=== PATIENT | female | born 1960 | race African-American/Black ===

== ENCOUNTER 2016-11-08 14:37 | Inpatient (IN) | payer MEDICAID ==
[~2016-11-08] VITALS: Ht 170.2 cm; Wt 61.7 kg
[2016-11-08] MEDS ORDERED: BENA20TA3 PO (15:01)
[2016-11-08] MEDS ORDERED: METF500T4 PO (15:01)
[2016-11-08 15:37] LABS: BASOPHILS % 1.1 % (0.0-2.0); EOSINOPHILS % 0.6 % (0.0-5.0); HEMATOCRIT. 34.1 % (36.0-48.0); HEMOGLOBIN. 11.1 g/dL (12.0-16.0); LYMPHOCYTES % 36.9 % (20.0-50.0); MEAN CORPUSCULAR HEMOGLOBIN 23.9 pg (28.0-32.0); MEAN CORPUSCULAR VOLUME 73.1 fL (81.0-99.0); MEAN PLATELET VOLUME 9.3 fl (7.4-10.4); MONOCYTES % 8.1 % (2.0-8.0); NEUTROPHILS % 53.3 % (40.0-76.0); PLATELET 184 x1000/uL (130-400); RED BLOOD CELL COUNT 4.66 mill/uL (4.2-5.4); RED CELL DISTRIBUTION WIDTH 16.5 % (11.6-14.6)
[2016-11-08 15:45] LABS: PARTIAL THROMBOPLASTIN TIME 26.1 sec (23.4-31.0); PROTHROMBIN TIME 10.6 sec (9.4-11.6)
[2016-11-08 15:50] LABS: CARBON DIOXIDE 29 mEq/L (21-32); CHLORIDE 102 mEq/L (98-107)
[2016-11-08 15:53] LABS: TROPONIN I < 0.02 ng/mL (0.00-0.04)
[2016-11-08] MEDS ORDERED: LABETALOL HCL 20MG/4ML CARPUJECT IV ONE (21:45)
[2016-11-09] VITALS (9 sets, daily range): BP systolic 98–167; BP diastolic 67–104
[2016-11-09] MEDS ORDERED: QUET400T PO (01:55)
[2016-11-09] MEDS ORDERED: DEXTROSE 50% WATER 50ML SYRINGE IV PRN (02:15)
[2016-11-09] MEDS ORDERED: CLONIDINE 0.1MG TABLET PO PRN ×2 (02:15→02:45)
[2016-11-09] MEDS: QUETIAPINE FUMARATE 100MG TABLET PO SCH ×2 (03:04→20:58)
[2016-11-09 06:27] LABS: BASOPHILS % 0.4 % (0.0-2.0); EOSINOPHILS % 0.8 % (0.0-5.0); HEMATOCRIT. 34.4 % (36.0-48.0); MEAN CORPUSCULAR HEMOGLOBIN 23.8 pg (28.0-32.0); MEAN CORPUSCULAR VOLUME 74.5 fL (81.0-99.0); MEAN PLATELET VOLUME 10.1 fl (7.4-10.4); MONOCYTES % 7.6 % (2.0-8.0); NEUTROPHILS % 54.2 % (40.0-76.0); PLATELET 182 x1000/uL (130-400); RED BLOOD CELL COUNT 4.62 mill/uL (4.2-5.4); RED CELL DISTRIBUTION WIDTH 16.3 % (11.6-14.6)
[2016-11-09] MEDS: INSULIN LISPRO 100 UNITS/ML SUBCUT SCH ×4 (06:38→20:53)
[2016-11-09] MEDS: BLOOD SUGAR DIAGNOSTIC STRIP TEST SCH ×4 (06:38→20:53)
[2016-11-09 06:50] LABS: CARBON DIOXIDE 28 mEq/L (21-32); CHLORIDE 100 mEq/L (98-107); TROPONIN I < 0.02 ng/mL (0.00-0.04)
[2016-11-09 06:52] LABS: CREATINE KINASE MB FRACTION < 0.5 ng/mL (0.5-3.6)
[2016-11-09 06:59] LABS: CREATINE KINASE 26 IU/L (26-192)
[2016-11-09] MEDS ORDERED: METFORMIN HCL 500MG TABLET PO SCH (07:15)
[2016-11-09 08:36] LABS: *AMPHETAMINES SCREEN URINE NEGATIVE (NEGATIVE); *BARBITURATES SCREEN URINE NEGATIVE (NEGATIVE); *BENZODIAZEPINES SCREEN URINE NEGATIVE (NEGATIVE); *COCAINE SCREEN URINE PRESUMTIVE POSITIVE (NEGATIVE); CANNABINOID URINE SCREEN NEGATIVE (NEGATIVE); METHADONE URINE SCREEN NEGATIVE (NEGATIVE); OPIATES URINE SCREEN NEGATIVE (NEGATIVE); PHENCYCLIDINE URINE SCREEN NEGATIVE (NEGATIVE)
[2016-11-09] MEDS: ENOXAPARIN 40MG/0.4ML SYR SUBCUT SCH (09:00)
[2016-11-09] MEDS ORDERED: POTASSIUM CHLORIDE 20MEQ TABLET SR PO SCH (09:15)
[2016-11-09] MEDS: BENAZEPRIL 20MG TABLET PO SCH (09:16)
[2016-11-09] MEDS: AMLODIPINE 10MG TABLET PO SCH (11:30)
[2016-11-09 16:24] LABS: CREATINE KINASE 25 IU/L (26-192); CREATINE KINASE MB FRACTION < 0.5 ng/mL (0.5-3.6); TROPONIN I < 0.02 ng/mL (0.00-0.04)
[2016-11-09] MEDS ORDERED: MEDICATION NOT ON FORMULARY EA (Quetiapine Fumarate (Seroquel) 400 MG) PO SCH (21:00)
[2016-11-10] VITALS: BP 145/80
[2016-11-10 04:00] VITALS: BP 138/89
[2016-11-10] MEDS: BLOOD SUGAR DIAGNOSTIC STRIP TEST SCH ×3 (06:02→16:53)
[2016-11-10] MEDS: INSULIN LISPRO 100 UNITS/ML SUBCUT SCH ×3 (06:22→16:53)
[2016-11-10 08:00] VITALS: BP 118/74
[2016-11-10] MEDS: BENAZEPRIL 20MG TABLET PO SCH (08:47)
[2016-11-10] MEDS: AMLODIPINE 10MG TABLET PO SCH (08:47)
[2016-11-10] MEDS: ENOXAPARIN 40MG/0.4ML SYR SUBCUT SCH (08:48)
[2016-11-10 12:00] VITALS: BP 122/78
[2016-11-10] MEDS ORDERED: AMLO10TA80 PO (12:48)
[2016-11-10] MEDS ORDERED: ASPI-867 PO (12:48)
[2016-11-10] MEDS ORDERED: LIP40 PO (12:50)
[2016-11-10 16:00] VITALS: BP 164/93
[2016-11-10 18:07] VITALS: BP 122/78
== END 2016-11-10 17:00 | disposition home or self-care (01) | DRG 52 ==
LOC: ER 14:47 → 5WST 20:28
PROVIDERS: ADMIT Internal Medicine; ATTEND Internal Medicine
DX: G92 Toxic encephalopathy (principal); I67.82 Cerebral ischemia; R55 Syncope and collapse; E44.1 Mild protein-calorie malnutrition; I10 Essential (primary) hypertension; F14.10 Cocaine abuse, uncomplicated; E11.9 Type 2 diabetes mellitus without complications; F10.10 Alcohol abuse, uncomplicated; E87.6 Hypokalemia; E78.5 Hyperlipidemia, unspecified; F17.210 Nicotine dependence, cigarettes, uncomplicated; J44.9 Chronic obstructive pulmonary disease, unspecified; E78.00 Pure hypercholesterolemia, unspecified; Z82.49 Family history of ischemic heart disease and other diseases of the circulatory system; Z68.21 Body mass index [BMI] 21.0-21.9, adult; Z86.73 Personal history of transient ischemic attack (TIA), and cerebral infarction without residual deficits
CPT/HCPCS: 36415; 70450; 70551; 71010; 80053; 80305; 82550; 82553; 82962; 83690; 83735; 84484; 85025; 85610; 85730; 93005; 93306; 93880; 93970; 96374; 97116; 97162; 97165; 99285; J1650; J1815; J3490

== ENCOUNTER 2017-12-11 15:51 | Emergency (ER) | payer MEDICAID ==
[~2017-12-11] VITALS: Ht 175.3 cm; Wt 72.0 kg
[~2017-12-11 15:51] MED LIST: AMLO10TA80 PO; ASPI-867 PO; BENA20TA10 PO; LIP40 PO; METF500T6 PO; QUET400T PO
[2017-12-11] MEDS ORDERED: HYDROCODONE/ACETAMINOPHEN 5/325MG TABLET PO ONE (17:45)
[2017-12-11] MEDS ORDERED: AMLODIPINE 10MG TABLET PO ONE (22:15)
[2017-12-11 23:27] LABS: CLARITY URINE CLEAR (CLEAR); COLOR URINE YELLOW (YELLOW); KETONES URINE TRACE (NEGATIVE); LEUKOCYTE ESTERASE URINE 2+ (NEGATIVE); NITRITE URINE NEGATIVE (NEGATIVE); OCCULT BLOOD URINE NEGATIVE (NEGATIVE); PROTEIN URINE 1+ (NEGATIVE); SPECIFIC GRAVITY URINE 1.011 (1.005-1.030); UROBILINOGEN URINE 0.2 E.U./dL (0.2-1.0)
[2017-12-12 03:16] VITALS: BP 169/98
== END 2017-12-12 03:19 | disposition home or self-care (01) ==
LOC: ER 19:29
DX: G89.29 Other chronic pain (principal); M54.5 Low back pain; B37.2 Candidiasis of skin and nail; E11.65 Type 2 diabetes mellitus with hyperglycemia; E78.00 Pure hypercholesterolemia, unspecified; I10 Essential (primary) hypertension; Z86.73 Personal history of transient ischemic attack (TIA), and cerebral infarction without residual deficits; Z79.899 Other long term (current) drug therapy
CPT/HCPCS: 81003; 82962; 99284

== ENCOUNTER 2020-02-14 13:06 | Emergency (ER) | payer MEDICAID ==
[~2020-02-14] VITALS: Ht 175.3 cm; Wt 64.0 kg
[~2020-02-14 13:06] MED LIST changes: +ASPI-1158 PO; -ASPI-867 PO; +ASPI325T85 PO; +BENA40TA9 PO; +DILT180C66 PO; +METF-414 PO; -METF500T6 PO; +SIMV-46 PO; +SITA100T11 PO
[2020-02-14 13:12] VITALS: BP 172/108
[2020-02-14] MEDS ORDERED: HYDROCODONE/ACETAMINOPHEN 5/325MG TABLET PO ONE (16:15)
[2020-02-14 17:01] LABS: EOSINOPHILS % 2.2 % (0.0-5.0); HEMATOCRIT. 36.8 % (36.0-48.0); HEMOGLOBIN. 11.8 g/dL (12.0-16.0); LYMPHOCYTES % 33.5 % (20.0-50.0); MEAN CORPUSCULAR HEMOGLOBIN 24.2 pg (28.0-32.0); MEAN CORPUSCULAR VOLUME 75.1 fL (81.0-99.0); MEAN PLATELET VOLUME 8.3 fl (7.4-10.4); MONOCYTES % 6.8 % (2.0-8.0); NEUTROPHILS % 56.5 % (40.0-76.0); PLATELET 237 x1000/uL (130-400); RED BLOOD CELL COUNT 4.89 mill/uL (4.2-5.4); RED CELL DISTRIBUTION WIDTH 17.4 % (11.6-14.6)
[2020-02-14 17:04] LABS: CHLORIDE 104 mEq/L (98-107)
[2020-02-14 20:06] LABS: CLARITY URINE CLEAR (CLEAR); COLOR URINE YELLOW (YELLOW); KETONES URINE NEGATIVE (NEGATIVE); LEUKOCYTE ESTERASE URINE 2+ (NEGATIVE); NITRITE URINE NEGATIVE (NEGATIVE); OCCULT BLOOD URINE NEGATIVE (NEGATIVE); PROTEIN URINE NEGATIVE (NEGATIVE); SPECIFIC GRAVITY URINE 1.012 (1.005-1.030); UROBILINOGEN URINE 0.2 E.U./dL (0.2-1.0)
== END 2020-02-14 20:07 | disposition home or self-care (01) ==
LOC: ER 13:06
DX: S52.692A Other fracture of lower end of left ulna, initial encounter for closed fracture (principal); W01.0XXA Fall on same level from slipping, tripping and stumbling without subsequent striking against object, initial encounter; Y93.89 Activity, other specified; Y92.89 Other specified places as the place of occurrence of the external cause; Y99.8 Other external cause status; E11.9 Type 2 diabetes mellitus without complications; E78.00 Pure hypercholesterolemia, unspecified; I10 Essential (primary) hypertension; Z79.899 Other long term (current) drug therapy
CPT/HCPCS: 29125; 36415; 73090; 73110; 80053; 81003; 85025; 93005; 99285

== ENCOUNTER 2020-07-30 14:48 | Emergency (ER) | payer MEDICAID ==
[~2020-07-30] VITALS: Ht 175.3 cm; Wt 63.0 kg
[~2020-07-30 14:48] MED LIST changes: -ASPI-1158 PO; +ASPI-1406 PO; +ASPI-867 PO; -ASPI325T85 PO
[2020-07-30] MEDS ORDERED: ACETAMINOPHEN 325MG TABLET PO ONE (19:00)
[2020-07-30 20:44] LABS: BASOPHILS % 0.7 % (0.0-2.0); EOSINOPHILS % 1.1 % (0.0-5.0); HEMOGLOBIN. 9.8 g/dL (12.0-16.0); LYMPHOCYTES % 38.9 % (20.0-50.0); MEAN CORPUSCULAR HEMOGLOBIN 24.5 pg (28.0-32.0); MEAN CORPUSCULAR VOLUME 75.5 fL (81.0-99.0); MEAN PLATELET VOLUME 8.2 fl (7.4-10.4); MONOCYTES % 6.6 % (2.0-8.0); NEUTROPHILS % 52.7 % (40.0-76.0); PLATELET 361 x1000/uL (130-400); RED BLOOD CELL COUNT 3.98 mill/uL (4.2-5.4); RED CELL DISTRIBUTION WIDTH 17.1 % (11.6-14.6)
[2020-07-30 20:47] LABS: CHLORIDE 106 mEq/L (98-107)
[2020-07-30 22:03] VITALS: BP 166/105
[2020-07-30] MEDS ORDERED: CEPH500C2 MT (22:09)
[2020-07-30] MEDS ORDERED: T3 PO (22:09)
[2020-07-30] MEDS ORDERED: CEPHALEXIN 250MG CAPSULE PO ONE (22:15)
== END 2020-07-30 22:30 | disposition home or self-care (01) ==
LOC: ER 14:48
DX: L03.116 Cellulitis of left lower limb (principal); F17.200 Nicotine dependence, unspecified, uncomplicated; I10 Essential (primary) hypertension; E11.9 Type 2 diabetes mellitus without complications; I49.9 Cardiac arrhythmia, unspecified; Z79.899 Other long term (current) drug therapy
CPT/HCPCS: 36415; 71045; 73630; 80053; 83880; 84484; 85025; 93005; 93970; 99285; 99406

== ENCOUNTER 2020-10-07 17:12 | Inpatient (IN) | payer OTHER ==
[~2020-10-07] VITALS: Ht 175.3 cm; Wt 67.6 kg
[~2020-10-07 17:12] MED LIST changes: -ASPI-867 PO; -BENA40TA9 PO; +T3 PO
[2020-10-07] MEDS ORDERED: VANCOMYCIN 1 G PREMIX 200 ML IV ONE (18:00)
[2020-10-07] MEDS ORDERED: PIPERACILLIN/TAZ 3.375G PREMIX 50 ML IV ONE (18:00)
[2020-10-07] MEDS ORDERED: SODIUM CHLORIDE 0.9% 1,000 ML IV ONE (18:00)
[2020-10-07 19:17] LABS: BASOPHILS % 1.1 % (0.0-2.0); EOSINOPHILS % 1.3 % (0.0-5.0); HEMATOCRIT. 31.4 % (36.0-48.0); HEMOGLOBIN. 10.2 g/dL (12.0-16.0); LYMPHOCYTES % 27.7 % (20.0-50.0); MEAN CORPUSCULAR HEMOGLOBIN 24.5 pg (28.0-32.0); MEAN CORPUSCULAR VOLUME 75.5 fL (81.0-99.0); MEAN PLATELET VOLUME 8.9 fl (7.4-10.4); MONOCYTES % 5.6 % (2.0-8.0); NEUTROPHILS % 64.3 % (40.0-76.0); PLATELET 256 x1000/uL (130-400); RED BLOOD CELL COUNT 4.16 mill/uL (4.2-5.4); RED CELL DISTRIBUTION WIDTH 16.2 % (11.6-14.6)
[2020-10-07 19:27] LABS: PROTHROMBIN TIME 10.8 sec (9.6-11.0)
[2020-10-07] MEDS ORDERED: HYDROCODONE/ACETAMINOPHEN 5/325MG TABLET PO ONE (20:00)
[2020-10-07] MEDS ORDERED: ENOXAPARIN 40MG/0.4ML SYR SUBCUT SCH (20:30)
[2020-10-07] MEDS ORDERED: ACETAMINOPHEN 325MG TABLET PO PRN (20:30)
[2020-10-07] MEDS ORDERED: MAGNESIUM/ALUMINUM HYDROXIDE/SIMETHICONE 30ML UDC PO PRN (20:30)
[2020-10-07] MEDS ORDERED: IPRATROPIUM/ALBUTEROL 0.5-3(2.5)MG/3ML NEB NEB PRN (20:30)
[2020-10-07] MEDS ORDERED: DOCUSATE SODIUM 100MG CAPSULE PO PRN (20:30)
[2020-10-07] MEDS ORDERED: ONDANSETRON HCL 4MG/2ML INJ IV PRN (20:30)
[2020-10-07 20:44] LABS: CHLORIDE 110 mEq/L (98-107)
[2020-10-07 21:56] LABS: CLARITY URINE CLEAR (CLEAR); COLOR URINE YELLOW (YELLOW); KETONES URINE NEGATIVE (NEGATIVE); LEUKOCYTE ESTERASE URINE TRACE (NEGATIVE); NITRITE URINE NEGATIVE (NEGATIVE); OCCULT BLOOD URINE NEGATIVE (NEGATIVE); PH URINE 5.5 (4.5-8.0); PROTEIN URINE NEGATIVE (NEGATIVE); SPECIFIC GRAVITY URINE 1.011 (1.005-1.030); UROBILINOGEN URINE 0.2 E.U./dL (0.2-1.0)
[2020-10-07 22:29] LABS: *COCAINE SCREEN URINE NEGATIVE (NEGATIVE); METHADONE URINE SCREEN NEGATIVE (NEGATIVE)
[2020-10-07 22:30] LABS: *AMPHETAMINES SCREEN URINE NEGATIVE (NEGATIVE); *BARBITURATES SCREEN URINE NEGATIVE (NEGATIVE); CANNABINOID URINE SCREEN NEGATIVE (NEGATIVE); OPIATES URINE SCREEN NEGATIVE (NEGATIVE); PHENCYCLIDINE URINE SCREEN NEGATIVE (NEGATIVE)
[2020-10-07 22:31] LABS: *BENZODIAZEPINES SCREEN URINE NEGATIVE (NEGATIVE)
[2020-10-08] VITALS (7 sets, daily range): BP systolic 124–203; BP diastolic 78–116
[2020-10-08] MEDS ORDERED: DEXTROSE 50% WATER 50ML SYRINGE IV PRN
[2020-10-08] MEDS: CLONIDINE 0.1MG TABLET PO PRN (01:14)
[2020-10-08] MEDS ORDERED: PIPERACILLIN/TAZOBACTAM 3.375 G in DEXTROSE 5% WATER 50 ML IV SCH (02:00)
[2020-10-08] MEDS: PIPERACILLIN/TAZOBACTAM 3.375 G in DEXTROSE 5% WATER 50 ML IV SCH ×3 (04:40→17:41)
[2020-10-08] MEDS: BLOOD SUGAR DIAGNOSTIC STRIP TEST SCH ×4 (06:34→21:04)
[2020-10-08 06:51] LABS: BASOPHILS % 0.7 % (0.0-2.0); EOSINOPHILS % 2.3 % (0.0-5.0); HEMATOCRIT. 26.5 % (36.0-48.0); HEMOGLOBIN. 8.5 g/dL (12.0-16.0); LYMPHOCYTES % 36.6 % (20.0-50.0); MEAN CORPUSCULAR VOLUME 74.9 fL (81.0-99.0); MEAN PLATELET VOLUME 9.1 fl (7.4-10.4); MONOCYTES % 10.7 % (2.0-8.0); NEUTROPHILS % 49.7 % (40.0-76.0); PLATELET 221 x1000/uL (130-400); RED BLOOD CELL COUNT 3.54 mill/uL (4.2-5.4); RED CELL DISTRIBUTION WIDTH 16.2 % (11.6-14.6)
[2020-10-08] MEDS ORDERED: VANCOMYCIN 750 MG PREMIX 150 ML IV SCH (07:00)
[2020-10-08] MEDS: INSULIN LISPRO 100 UNITS/ML SUBCUT SCH ×4 (07:50→21:07)
[2020-10-08] MEDS ORDERED: BUPIVACAINE HCL/PF 0.5% (5MG/ML) 10ML ONE ×2 (16:45→18:19)
[2020-10-08] MEDS ORDERED: LIDOCAINE HCL 1% 20ML VIAL (Pyxis) INJ ONE ×2 (16:45→18:19)
[2020-10-08] MEDS ORDERED: TRIAMCINOLONE ACETONIDE 40MG/ML 1ML VIAL ONE ×2 (16:46→18:19)
[2020-10-08] MEDS ORDERED: DEXAMETHASONE 4MG/ML 1ML VIAL ONE ×2 (16:46→18:19)
[2020-10-08] MEDS ORDERED: SODIUM CHLORIDE 0.9% INJ 10ML FLUSH IVF ONE ×2 (16:47→18:19)
[2020-10-08] MEDS ORDERED: BACITRACIN 50,000 UNITS/VIAL ONE ×2 (16:47→18:20)
[2020-10-08] MEDS ORDERED: GENTAMICIN SULF 40MG/ML 2ML VIAL ONE ×2 (16:47→18:32)
[2020-10-08] MEDS: HYDROCODONE/ACETAMINOPHEN 5/325MG TABLET PO PRN ×2 (17:03→22:04)
[2020-10-08] MEDS: VANCOMYCIN 1 G PREMIX 200 ML IV SCH (21:05)
[2020-10-09] VITALS: BP 134/77
[2020-10-09] MEDS: PIPERACILLIN/TAZOBACTAM 3.375 G in DEXTROSE 5% WATER 50 ML IV SCH ×4 (00:23→18:00)
[2020-10-09 04:39] VITALS: BP 152/86
[2020-10-09] MEDS: BLOOD SUGAR DIAGNOSTIC STRIP TEST SCH ×4 (06:43→20:51)
[2020-10-09] MEDS ORDERED: LIDOCAINE HCL 1% 20ML VIAL (Pyxis) INJ ONE (07:31)
[2020-10-09] MEDS ORDERED: BACITRACIN 15GM TUBE TOP ONE (07:32)
[2020-10-09] MEDS ORDERED: BUPIVACAINE HCL/PF 0.5% (5MG/ML) 10ML ONE (07:32)
[2020-10-09] MEDS ORDERED: BACITRACIN 50,000 UNITS/VIAL ONE ×2 (07:32→07:33)
[2020-10-09] MEDS ORDERED: NALOXONE HCL 0.4MG/ML VIAL IV PRN (07:45)
[2020-10-09] MEDS: INSULIN LISPRO 100 UNITS/ML SUBCUT SCH ×4 (07:50→20:52)
[2020-10-09 08:00] VITALS: BP 133/78
[2020-10-09 08:47] LABS: CHLORIDE 104 mEq/L (98-107)
[2020-10-09] MEDS: VANCOMYCIN 1 G PREMIX 200 ML IV SCH (09:01)
[2020-10-09] MEDS: SODIUM CHLORIDE 0.9% 1,000 ML IV SCH ×2 (09:01→17:45)
[2020-10-09 12:00] VITALS: BP 144/78
[2020-10-09] MEDS ORDERED: MORPHINE SULFATE 2 MG/ML CPJ (NOT FOR IM USE) IV NR (15:00)
[2020-10-09 16:00] VITALS: BP 171/85
[2020-10-09] MEDS ORDERED: GLYCOPYRROLATE 0.2 MG/ML 2ML VIAL ONE (18:57)
[2020-10-09] MEDS ORDERED: DEXAMETHASONE 4MG/ML 1ML VIAL ONE (19:16)
[2020-10-09] MEDS ORDERED: METOCLOPRAMIDE HCL 10MG/2ML VIAL ONE (19:17)
[2020-10-09] MEDS ORDERED: ONDANSETRON HCL 4MG/2ML INJ ONE (19:17)
[2020-10-09] MEDS ORDERED: MEPERIDINE HCL/PF 25MG/ML CPJ IV PRN (19:30)
[2020-10-09] MEDS ORDERED: LABETALOL 5MG/ML SYR 20 MG/4 ML SYRINGE IV PRN (19:30)
[2020-10-09] MEDS ORDERED: ONDANSETRON HCL 4MG/2ML INJ IV PRN (19:30)
[2020-10-09] MEDS ORDERED: HYDROMORPHONE HCL/PF 2MG/ML CPJ IV PRN (19:30)
[2020-10-09 20:00] VITALS: BP 180/106
[2020-10-09] MEDS: CLONIDINE 0.1MG TABLET PO PRN (21:08)
[2020-10-10] VITALS: BP 159/89
[2020-10-10] MEDS: PIPERACILLIN/TAZOBACTAM 3.375 G in DEXTROSE 5% WATER 50 ML IV SCH ×4 (00:21→18:16)
[2020-10-10] MEDS: HYDROCODONE/ACETAMINOPHEN 5/325MG TABLET PO PRN ×6 (00:21→22:23)
[2020-10-10] MEDS: SODIUM CHLORIDE 0.9% 1,000 ML IV SCH ×3 (03:45→23:45)
[2020-10-10 04:00] VITALS: BP 138/84
[2020-10-10] MEDS: BLOOD SUGAR DIAGNOSTIC STRIP TEST SCH ×4 (06:34→21:11)
[2020-10-10 08:00] VITALS: BP 142/88
[2020-10-10] MEDS: INSULIN LISPRO 100 UNITS/ML SUBCUT SCH ×4 (09:32→21:17)
[2020-10-10 09:54] LABS: BASOPHILS % 0.8 % (0.0-2.0); EOSINOPHILS % 0.5 % (0.0-5.0); LYMPHOCYTES % 27.3 % (20.0-50.0); MEAN CORPUSCULAR HEMOGLOBIN 23.9 pg (28.0-32.0); MEAN CORPUSCULAR VOLUME 76.1 fL (81.0-99.0); MEAN PLATELET VOLUME 8.8 fl (7.4-10.4); MONOCYTES % 6.9 % (2.0-8.0); NEUTROPHILS % 64.5 % (40.0-76.0); PLATELET 238 x1000/uL (130-400); RED BLOOD CELL COUNT 4.13 mill/uL (4.2-5.4); RED CELL DISTRIBUTION WIDTH 16.2 % (11.6-14.6)
[2020-10-10 09:59] LABS: CHLORIDE 103 mEq/L (98-107)
[2020-10-10 10:37] LABS: HEMOGLOBIN. 9.9 g/dL (12.0-16.0)
[2020-10-10 10:38] LABS: HEMATOCRIT. 31.4 % (36.0-48.0)
[2020-10-10 12:00] VITALS: BP 172/99
[2020-10-10] MEDS: VANCOMYCIN 1 G PREMIX 200 ML IV SCH (12:40)
[2020-10-10] MEDS: CLONIDINE 0.1MG TABLET PO PRN (13:40)
[2020-10-10 16:00] VITALS: BP 147/90
[2020-10-10 20:00] VITALS: BP 141/83
[2020-10-11] VITALS: BP 162/89
[2020-10-11] MEDS: PIPERACILLIN/TAZOBACTAM 3.375 G in DEXTROSE 5% WATER 50 ML IV SCH ×3 (00:30→11:30)
[2020-10-11 04:00] VITALS: BP 164/89
[2020-10-11] MEDS: CLONIDINE 0.1MG TABLET PO PRN ×2 (06:08→13:25)
[2020-10-11] MEDS: VANCOMYCIN 1 G PREMIX 200 ML IV SCH (06:09)
[2020-10-11] MEDS: HYDROCODONE/ACETAMINOPHEN 5/325MG TABLET PO PRN ×3 (06:13→16:00)
[2020-10-11 06:43] LABS: CHLORIDE 105 mEq/L (98-107)
[2020-10-11] MEDS: INSULIN LISPRO 100 UNITS/ML SUBCUT SCH ×2 (07:36→13:25)
[2020-10-11] MEDS: BLOOD SUGAR DIAGNOSTIC STRIP TEST SCH ×3 (07:36→17:20)
[2020-10-11 08:00] VITALS: BP 153/91
[2020-10-11] MEDS: SODIUM CHLORIDE 0.9% 1,000 ML IV SCH (10:03)
[2020-10-11 12:00] VITALS: BP 176/97
[2020-10-11] MEDS ORDERED: LEVO750T46 MT (13:19)
[2020-10-11 16:00] VITALS: BP 132/86
[2020-10-11 16:50] VITALS: BP 132/86
[2020-10-11] MEDS ORDERED: HYDR-4001 MT (18:00)
== END 2020-10-11 17:58 | disposition home or self-care (01) | DRG 314 ==
LOC: ER 17:12 → 6WST 20:17 → EDBEDREQ 20:21 → EDBEDREQTM 20:21 → ENRESERV 23:02
PROVIDERS: ADMIT Internal Medicine; ATTEND Internal Medicine
PROC: 0Y6Y0Z0 Detachment at Left 5th Toe, Complete, Open Approach (ICD-10-PCS; principal; 2020-10-09)
DX: E11.52 Type 2 diabetes mellitus with diabetic peripheral angiopathy with gangrene (principal); I96 Gangrene, not elsewhere classified; E11.69 Type 2 diabetes mellitus with other specified complication; M86.8X7 Other osteomyelitis, ankle and foot; F17.200 Nicotine dependence, unspecified, uncomplicated; L60.3 Nail dystrophy; I10 Essential (primary) hypertension; Z82.49 Family history of ischemic heart disease and other diseases of the circulatory system; Z79.899 Other long term (current) drug therapy; Z79.82 Long term (current) use of aspirin; Z98.51 Tubal ligation status
CPT/HCPCS: 36415; 71045; 73630; 80048; 80053; 80061; 80202; 80305; 81003; 82962; 83036; 84443; 85025; 86850; 86900; 87070; 87075; 87077; 87186; 88307; 88311; 93005; 93970; 97162; 97166; 99285; C1893; J1100; J1580; J1815; J2270; J2405; J2543; J2765; J3301; J3370; J3490; J7030; J7060

== ENCOUNTER 2021-01-04 18:45 | Emergency (ER) | payer MEDICAID, OTHER ==
[~2021-01-04] VITALS: Ht 175.3 cm; Wt 64.0 kg
[~2021-01-04 18:45] MED LIST changes: +HYDR-4001 MT; +LEVO750T46 MT; -SIMV-46 PO
[2021-01-05] MEDS ORDERED: ACETAMINOPHEN 325MG TABLET PO STA (00:50)
[2021-01-05 01:31] LABS: BASOPHILS % 0.6 % (0.0-2.0); HEMATOCRIT. 37.4 % (36.0-48.0); HEMOGLOBIN. 12.1 g/dL (12.0-16.0); LYMPHOCYTES % 35.4 % (20.0-50.0); MEAN CORPUSCULAR HEMOGLOBIN 23.9 pg (28.0-32.0); MEAN CORPUSCULAR VOLUME 73.9 fL (81.0-99.0); MEAN PLATELET VOLUME 9.1 fl (7.4-10.4); MONOCYTES % 8.3 % (2.0-8.0); NEUTROPHILS % 54.7 % (40.0-76.0); PLATELET 191 x1000/uL (130-400); RED BLOOD CELL COUNT 5.06 mill/uL (4.2-5.4); RED CELL DISTRIBUTION WIDTH 17.6 % (11.6-14.6)
[2021-01-05 01:35] LABS: CHLORIDE 101 mEq/L (98-107)
[2021-01-05 01:39] LABS: ETHANOL BLOOD < 10 mg/dL
[2021-01-05 02:23] LABS: PROTHROMBIN TIME 10.3 sec (9.6-11.0)
[2021-01-05] MEDS ORDERED: HYDR-4001 MT (04:27)
[2021-01-05 05:50] VITALS: BP 177/118
[2021-01-05 06:08] LABS: CLARITY URINE CLEAR (CLEAR); COLOR URINE YELLOW (YELLOW); KETONES URINE NEGATIVE (NEGATIVE); LEUKOCYTE ESTERASE URINE TRACE (NEGATIVE); NITRITE URINE NEGATIVE (NEGATIVE); OCCULT BLOOD URINE NEGATIVE (NEGATIVE); PH URINE 5.5 (4.5-8.0); PROTEIN URINE NEGATIVE (NEGATIVE); SPECIFIC GRAVITY URINE 1.008 (1.005-1.030); UROBILINOGEN URINE 0.2 E.U./dL (0.2-1.0)
[2021-01-05] MEDS ORDERED: CEPH250C2 MT (06:10)
[2021-01-05 06:27] LABS: *COCAINE SCREEN URINE NEGATIVE (NEGATIVE); METHADONE URINE SCREEN NEGATIVE (NEGATIVE)
[2021-01-05 06:28] LABS: *AMPHETAMINES SCREEN URINE NEGATIVE (NEGATIVE); *BARBITURATES SCREEN URINE NEGATIVE (NEGATIVE); *BENZODIAZEPINES SCREEN URINE NEGATIVE (NEGATIVE); CANNABINOID URINE SCREEN NEGATIVE (NEGATIVE); OPIATES URINE SCREEN NEGATIVE (NEGATIVE); PHENCYCLIDINE URINE SCREEN NEGATIVE (NEGATIVE)
== END 2021-01-05 05:50 | disposition home or self-care (01) ==
LOC: ER 18:45
DX: S42.392A Other fracture of shaft of left humerus, initial encounter for closed fracture (principal); W19.XXXA Unspecified fall, initial encounter; Y93.89 Activity, other specified; Y92.89 Other specified places as the place of occurrence of the external cause; Y99.8 Other external cause status; E11.9 Type 2 diabetes mellitus without complications; E78.00 Pure hypercholesterolemia, unspecified; I10 Essential (primary) hypertension; F17.290 Nicotine dependence, other tobacco product, uncomplicated; Z79.899 Other long term (current) drug therapy
CPT/HCPCS: 36415; 73030; 73502; 80053; 80305; 80320; 81003; 82962; 84484; 85025; 93005; 99285; A4565; G0480